=== PATIENT | male | born 1995 | race Native Hawaiian/Other Pacific Islander ===

== ENCOUNTER 2020-12-31 17:59 | Emergency (ER) | payer OTHER ==
[~2020-12-31] VITALS: Ht 182.9 cm; Wt 89.4 kg
[2020-12-31 19:55] VITALS: BP 116/75; TEMP 97
== END 2020-12-31 20:00 | disposition home or self-care (01) ==
LOC: ED 17:59
DX: G44.209 Tension-type headache, unspecified, not intractable (principal)
CPT/HCPCS: 99283